=== PATIENT | male | born 1995 | race Caucasian/White ===

== ENCOUNTER 2018-10-22 12:01 | Emergency (ER) | payer OTHER ==
[~2018-10-22] VITALS: Ht 182.9 cm; Wt 93.0 kg
[~2018-10-22 12:01] MED LIST: CODACEE120 PO; CRUTCH3 USE; IBUP800 PO; TRAM50 PO
== END 2018-10-22 13:50 | disposition home or self-care (01) ==
LOC: ER 12:01
DX: M25.511 Pain in right shoulder (principal); F17.200 Nicotine dependence, unspecified, uncomplicated
CPT/HCPCS: 73030; 99283-25

== ENCOUNTER 2018-10-25 11:01 | Emergency (ER) | payer OTHER ==
[~2018-10-25] VITALS: Ht 177.8 cm; Wt 81.7 kg
== END 2018-10-25 11:40 | disposition home or self-care (01) ==
LOC: ER 11:01
DX: S30.861A Insect bite (nonvenomous) of abdominal wall, initial encounter (principal); W57.XXXA Bitten or stung by nonvenomous insect and other nonvenomous arthropods, initial encounter; F17.200 Nicotine dependence, unspecified, uncomplicated
CPT/HCPCS: 10120; 99281-25

== ENCOUNTER 2019-02-26 16:45 | Emergency (ER) | payer OTHER ==
[~2019-02-26] VITALS: Ht 182.9 cm; Wt 84.4 kg
== END 2019-02-26 17:44 | disposition home or self-care (01) ==
LOC: ER 16:45
DX: S20.211A Contusion of right front wall of thorax, initial encounter (principal); R03.0 Elevated blood-pressure reading, without diagnosis of hypertension; F17.210 Nicotine dependence, cigarettes, uncomplicated; W17.89XA Other fall from one level to another, initial encounter
CPT/HCPCS: 71101; 99283-25